=== PATIENT | male | born 1950 | race Caucasian/White ===

== ENCOUNTER 2017-12-31 07:50 | Day surgery (SDC) | payer BC ==
--- NOTE | 2017-12-31 01:59 | History and Physical Report ---
DATE: 12/30/2017. CHIEF COMPLAINT AND HISTORY OF CHIEF COMPLAINT: This patient presents with a history multiple surgeries on his spine with a postlaminectomy syndrome. He has a spinal opioid infusion device infusing morphine. Over the last number of refills and reprogrammings, battery depletion was noted. He is here on an outpatient basis for removal and replacement of the pump battery. PAST MEDICAL HISTORY: Chronic obstructive pulmonary disease, asthmatic bronchitis. PAST SURGICAL HISTORY: Multiple lumbar laminectomies, cervical spine surgery, pump placement, gastric bypass. MEDICATIONS ON ADMISSION: To be provided. ALLERGIES: Corticosteroids. SOCIAL HISTORY: Caffeine. FAMILY HISTORY: Noncontributory. REVIEW OF SYSTEMS: The patient is appropriate and in no acute distress. The remainder of the systems review shows respiratory problems. PHYSICAL EXAMINATION: General: Height and weight are unavailable. Vital Signs: Unavailable. HEENT: Within normal limits. Lungs: Clear. Heart: Regular rate and rhythm. Abdomen: Nontender. Musculoskeletal: Examination of the musculoskeletal system shows the pump in the left posterior gluteal margin. The incisional site is intact. His chronic pain pattern shows multiple low back and lower extremity components. Motor and sensory field function is unchanged. Neurologic: Cranial nerves are intact. IMPRESSION: 1. POST LUMBAR LAMINECTOMY SYNDROME, ICD-10 CODE M96.1. 2. LUMBAR RADICULOPATHY, ICD-10 CODE M54.16 AND M54.17. 3. IMPLANTED SPINAL OPIOID INFUSION DEVICE WITH MORPHINE WITH BATTERY DEPLETION. PLAN: The patient is here on an outpatient basis for removal and replacement of the pump battery. No parameter changes will be made. The procedure will be considered outpatient. JOB NUMBER: [id number] cc: Shiraz Lowe
[~2017-12-31 07:50] MED LIST: ACETAMINOPHEN 1,000 MG/100 ML BTL IV ONE; FAMOTIDINE 20MG TABLET PO ONE; MECLIZINE 25 MG TABLET PO ONE; METOCLOPRAMIDE 10 MG TABLET PO ONE; MORPHINE SULFATE IV ONE; MORPHINE SULFATE/PF 0.05 MG in 0.9 % SODIUM CHLORIDE 10ML VIA 0.95 ML IV ONE; SODIUM CHLORIDE 0.9% IV ONE; VANCOMYCIN HCL 1,000 MG in DEXTROSE 5 % IN WATER 250 ML IVPB ONE
[2017-12-31] MEDS ORDERED: LIDOCAINE 1% W/EPI 1:200,000 MPF 30ML SQ ONE (07:51)
[2017-12-31] MEDS ORDERED: BUPIVACAINE 0.5% W/EPI MPF 30 ML VIAL IVP ONE (07:51)
[2017-12-31] MEDS ORDERED: LIDOCAINE 2% MDV (20MG/ML) 20ML VIAL IV ONE (07:51)
[2017-12-31] MEDS ORDERED: PROPOFOL 10 MG/ML VIAL IV ONE (07:51)
[2017-12-31] MEDS ORDERED: *PACU ONLY* KETAMINE HCL 10 MG/ML (20ML) VIAL IV ONE (07:51)
[2017-12-31] MEDS ORDERED: FENTANYL PF 100MCG/2ML VIAL IV ONE (07:51)
[2017-12-31] MEDS ORDERED: 0.9 % SODIUM CHLORIDE 10 ML VIAL IVP ONE (07:51)
[2017-12-31] MEDS ORDERED: MIDAZOLAM HCL 2MG/2ML VIAL IV ONE (07:51)
--- NOTE | 2018-01-01 06:04 | Operative Note ---
DATE OF SURGERY: 12/31/2017. PREOPERATIVE DIAGNOSIS: 1. POSTLUMBAR LAMINECTOMY SYNDROME, ICD-10 CODE M96.1. 2. LUMBAR RADICULOPATHY, ICD-10 CODE M54.16 AND M54.17. 3. PROGRAMMABLE SPINAL INFUSION PUMP, INTRASPINAL, INFUSING MORPHINE WITH BATTERY DEPLETION. POSTOPERATIVE DIAGNOSIS: 1. POSTLUMBAR LAMINECTOMY SYNDROME, ICD-10 CODE M96.1. 2. LUMBAR RADICULITIS, ICD-10 CODE M54.16 AND M54.17. OPERATION: 1. INCISION, SUBCUTANEOUS DISSECTION, REMOVAL, AND REPLACEMENT OF PROGRAMMABLE PUMP, 20 ML MEDTRONIC, LEFT POSTERIOR GLUTEAL MARGIN. 2. CATHETER REVISION AT PUMP POUCH. 3. INTERFACE REVISED CATHETER TO PUMP. PLACEMENT OF PUMP INTO POUCH SECURING TO FASCIA WITH NONABSORBABLE SUTURE. 4. PLACEMENT OF CURVED 24-GAUGE LANDAVERDE NEEDLE TO ACCESS PORT TO THE PROGRAMMABLE PUMP, ASPIRATING AND CLEARING CATHETER OF OPIOID AND A CEREBROSPINAL FLUID MIXTURE. 5. DIAGNOSTIC MYELOGRAPHY WITH RADIOLOGIC SUPERVISION AND INTERPRETATION. 6. CLOSURE OF INCISION WITH VICRYL FOR THE FASCIA AND RUNNING SUBCUTICULAR VICRYL FOR THE SKIN. DERMABOND CLOSURE. 7. PROGRAMMING OF PUMP TO DELIVER BY CONTINUOUS INFUSION MORPHINE AT 8.9 MG PER DAY. SURGEON: Luis Fernando White D.O. ANESTHESIA: Local sedation. ANESTHESIA PROVIDER: Melisa Huber CRNA. INDICATION: This patient presents with a history of intractable lumbar radiculopathy which is managed by a spinal infusion pump infusing morphine. Over the last number of reprogrammings and refills, battery depletion was identified. He is here for pump battery change without parameter modification. DESCRIPTION OF PROCEDURE: Intravenous line, vital sign monitoring, and intravenous sedation. Prepped and draped with sterile technique. The patient was positioned prone. Sterile prep and sterile technique at the left posterior gluteal margin pump pouch site with local infiltration. The previous incision was infiltrated and an incision was made. Subcutaneous dissection was conducted to the pump. The Dacron sleeve was opened and the pump was exteriorized. Immediately noted was a redundant series of loops of the catheter before it interfaced to the pump. The catheter was cut and resected. The redundant loops were resected out, and new a catheter component was interfaced to the indwelling catheter. A new pump, 20 mL programmable prefilled with morphine at 30 mg/mL was placed onto the field. The revised catheter was interfaced to the pump. A curved 24-gauge Landaverde needle was inserted into the access port, and 1.0 mL of catheter contents was aspirated clearing the catheter of opioid and cerebrospinal fluid mixture. Because of allergies to contrast, a saline injection was performed confirming patency of the catheter. The catheter tip was identified at T12-L1. With the pump in the pouch and secured to the posterior fascia with a nonabsorbable suture through the lateral pump loop, the pump pouch was closed, and then then the incision was closed using Vicryl for the fascia and running subcuticular Vicryl for the skin. A Dermabond closure was used to approximate the edges of the wound. Programming of the pump was then performed resetting all alarm values with his initial infusion rate of morphine at 8.9 mg a day. No bolus system was set into the system. He was transported to the recovery room stable, showing no side effects from the procedure or the sedation. DISCHARGE INSTRUCTIONS: 1. The sites are to remain clean and dry. No showering or bathing in any way that would result in disruption of the dressings. If this happens, contact the clinic. 2. Standard medications to be resumed including Levaquin the antibiotic 500 mg once a day for 14 days. If he has problems with the antibiotic, he should contact the clinic. 3. The office is to contact the patient at home to set up an evaluation in seven to ten days to check the incisional sites. Until then, his activities shall stay low and controlled. At the time of his evaluation we will clear him for further activity levels. 4. All other instructions were provided and numbers to contact with problems were given. He was then prepared for discharge. JOB NUMBER: [id number] cc: Shiraz Lowe
== END 2017-12-31 11:00 | disposition home or self-care (01) ==
LOC: SUR 07:50
PROVIDERS: ATTEND Pain Medicine Interventional Pain Medicine
DX: M96.1 Postlaminectomy syndrome, not elsewhere classified (principal); M54.16 Radiculopathy, lumbar region; M54.17 Radiculopathy, lumbosacral region; J44.9 Chronic obstructive pulmonary disease, unspecified; E78.00 Pure hypercholesterolemia, unspecified; R60.9 Edema, unspecified; E03.9 Hypothyroidism, unspecified
CPT/HCPCS: 62368; J7060